=== PATIENT | female | born 1975 | race Caucasian/White ===

== ENCOUNTER 2017-02-03 17:08 | Emergency (ER) | payer OTHER ==
[~2017-02-03 17:08] MED LIST: ALBUTEROL17 GM INH; BACTRIM DS TABL1 TAB PO; BACTROBAN22 GM TP; BROMFED DM COU118 ML PO; CELEXA; DESYREL50 MG; LOMOTIL TABLET1 TAB PO; NO MEDICATIONS; PEN-VEE K PO; PERCOCET5/325 PO; POLYMYXIN B/TMP10 M1; PYRIDIUM PO; RONDEC-DM ORAL30 ML PO; ULTRAM PO; ZOFRAN PO; ZOVIRAX800 MG PO
[2017-02-03 17:37] LABS: URINE SOURCE CLEAN CATCH
[2017-02-03 17:40] LABS: URINE APPEARANCE CLEAR; URINE BILIRUBIN NEG (NEG); URINE BLOOD 3+ (NEG); URINE COLOR YELLOW; URINE GLUCOSE NEG (NORM); URINE KETONE TRACE (NEG); URINE LEUKOCYTE ESTERASE NEG (NEG); URINE NITRATE NEG (NEG); URINE PH 5.5 (5-8); URINE PROTEIN NEG (NEG); URINE SPECIFIC GRAVITY >=1.030 (1.003-1.035); URINE UROBILINOGEN 0.2 MG/DL (NORM)
[2017-02-03 17:41] LABS: MICRO INDICATED? YES
[2017-02-03 17:49] LABS: CULTURE INDICATED? NO; URINE BACTERIA NEG (NEG); URINE RBC 25-50 /[HPF] (0-2); URINE SQUAMOUS EPITHELIAL CELL MODERATE /[HPF]; URINE WBC 0-2 /[HPF] (0-5)
[2017-02-03 18:03] LABS: BASOPHIL# 0.1 X10e3 (0-0.3); BASOPHIL% 0.8 % (0-2.5); EOSINOPHIL# 0.1 X10e3 (0-0.7); EOSINOPHIL% 1.5 % (0.0-7.0); HEMATOCRIT 39.5 % (35.0-45.0); HEMOGLOBIN 13.2 gm/dL (12.0-16.0); LYMPHOCYTE# 2.9 X10e3 (1.0-3.5); LYMPHOCYTE% 31.8 % (17.0-45.0); MEAN CELL VOLUME 92.3 FL (83-96); MEAN CORPUSCULAR HEMOGLOBIN 30.9 PG (28-34); MEAN CORPUSCULAR HGB CONC 33.5 g/dL (30-36); MEAN PLATELET VOLUME 9.4 FL (6.5-11.5); MONOCYTE# 0.7 X10e3 (0-1.0); MONOCYTE% 7.8 % (3.0-12.0); NEUTROPHIL# 5.4 X10e3 (1.5-7.1); NEUTROPHIL% 58.1 % (40-75); PLATELET COUNT 228 X10e3 (140-420); RED BLOOD COUNT 4.28 X10e (3.90-5.30); RED CELL DISTRIBUTION WIDTH 14.1 % (11.0-15.5); WHITE BLOOD COUNT 9.2 X10e3 (4.0-10.5)
[2017-02-03 18:04] LABS: DIFF IND NO
[2017-02-03 18:21] LABS: BUN/CREATININE RATIO 23.33; CALCIUM SERUM 8.7 mg/dL (8.4-10.2); CREATININE SERUM 0.6 mg/dL (0.6-1.4); GLOM FILT RATE Estimated 114.8 mL/min (>60); POTASSIUM 3.9 mmol/L (3.5-5.1)
== END 2017-02-03 19:15 | disposition home or self-care (01) ==
LOC: SED 17:08
PROVIDERS: Physician Assistant
DX: N93.8 Other specified abnormal uterine and vaginal bleeding (principal); R03.0 Elevated blood-pressure reading, without diagnosis of hypertension; F41.9 Anxiety disorder, unspecified; F17.210 Nicotine dependence, cigarettes, uncomplicated; Z98.51 Tubal ligation status
CPT/HCPCS: 36415; 80048; 81003; 84703; 85025; 99284